=== PATIENT | female | born 1965 | race Caucasian/White ===

== ENCOUNTER → 2016-10-11 | Outpatient (CLI) | payer MEDICAID ==
[~2016-10-11] MED LIST: ASPIRIN325 MG PO; BUTALB/APAP/CAF1 TA2 PO; CARDIZEM CD360 MG PO; CELEXA20 M1 PO; CELEXA20 MG PO; CIPRO 500MG TA500 MG PO; DILTIAZEM 24HR360 MG PO; ESTRADIOL1 MG PO; FERROUS SULFAT325 M2 PO; HYDROCODONE1 TABLET PO; LISINOPRIL 20MG20 MG PO; LORTAB 7.5/3251 TAB PO; MAXZIDE 25 MG-31 TAB PO; METFORMIN500 MG PO; MULTI VITAMINS1 TA1 PO; NEXIUM40 MG/PACK PO; NORCO 325 MG-51 TAB PO; SYNTHROID0.025 MG PO; VITAMIN E 400400 IU PO; ZOCOR20 MG PO
--- NOTE | 2016-10-13 08:12 | RADIOLOGY REPORT PS360 ---
DIG MAMM-SCREEN SARITHA W/CAD CAD Screening COMPARISON: Digital mammograms September 05, 2013 INDICATION: There is no personal or family history of breast cancer. There is been previous biopsy left breast. TECHNIQUE: Standard CC and MLO images were obtained. R2 CAD reviewed. FINDINGS: Mild scattered diffuse fibroglandular densities are seen throughout both breasts. There is arterial calcification in each breast and there are couple benign-appearing calcifications left breast. There is no suspicious lesion and no suspicious microcalcifications. IMPRESSION: Fibrofatty parenchyma with no suspicious lesion seen recommend yearly follow-up BI-RADS CATEGORY: 2_Benign RECOMMENDED FOLLOWUP: 12M 12 MONTH FOLLOW-UP (A letter has been sent to the patient regarding results of the study.)
== END ==
LOC: RAD 09:05
DX: Z12.31 Encounter for screening mammogram for malignant neoplasm of breast (principal)
CPT/HCPCS: G0202